=== PATIENT | male | born 1975 | race Caucasian/White ===

== ENCOUNTER 2023-08-24 18:50 | Emergency (ER) | payer MEDICAID ==
[~2023-08-24] VITALS: Ht 193 cm; Wt 117.9 kg
[2023-08-24 20:20] VITALS: BP 151/101; TEMP 98.2
[2023-08-24 21:38] VITALS: O2SAT 98
== END 2023-08-24 21:52 | disposition home or self-care (01) ==
LOC: ER 18:52
DX: S46.811A Strain of other muscles, fascia and tendons at shoulder and upper arm level, right arm, initial encounter (principal); X58.XXXA Exposure to other specified factors, initial encounter; Y93.89 Activity, other specified; Y92.89 Other specified places as the place of occurrence of the external cause; Y99.8 Other external cause status
CPT/HCPCS: 93971-TC